=== PATIENT | male | born 1950 | race Caucasian/White ===

== ENCOUNTER 2017-04-09 08:05 | Emergency (ER) | payer BC ==
[~2017-04-09 08:05] MED LIST: Lidocaine 1% 20 ML MDV INFILT ONE
[2017-04-09] MEDS ORDERED: Bacitracin/Neomycin/Polymyxin B Oint 0.9 GM U/D Packet TOP ONE (08:55)
[2017-04-09] MEDS ORDERED: cefTRIAXone 1,000 MG VIAL IM ONE (08:56)
[2017-04-09] MEDS ORDERED: Diphtheria,Pertussis(Acell),Tetanus Vaccine 0.5 ML SDV IM ONE (09:00)
--- NOTE | 2017-04-09 09:00 | EDM.PDOC ---
ED HPI GENERAL MEDICAL PROBLEM - General Stated Complaint: SMASHED RIGHT MIDDLE FINGER Time Seen by Provider: 04/09/17 08:05 Source of Information: Reports: Patient, Family History Limitations: Reports: No Limitations - History of Present Illness INITIAL COMMENTS - FREE TEXT/NARRATIVE: 66 y.o.w.m smashed his r middle finger, distal phalanx on a farm machine, nail was gone, no other acute medical issues Onset: Today Onset Date: 04/09/17 Onset Time: 07:00 Duration: Hour(s): Location: Reports: Upper Extremity, Right Quality: Reports: Burning Severity: Moderate Improves with: Reports: None Worsens with: Reports: None Context: Reports: Trauma Associated Symptoms: Reports: No Other Symptoms - Related Data Allergies Allergy/AdvReac Type Severity Reaction Status Date / Time No Known Allergies Allergy Verified 04/09/17 09:01 Home Meds: Home Meds Cephalexin [Keflex] 500 mg PO Q6HR #40 cap 04/09/17 [Rx] Review of Systems - Review of Systems Review Of Systems: See Below Constitutional: Reports: No Symptoms Eyes: Reports: No Symptoms Ears: Reports: No Symptoms Nose: Reports: No Symptoms Mouth/Throat: Reports: No Symptoms Respiratory: Reports: No Symptoms Cardiovascular: Reports: No Symptoms GI/Abdominal: Reports: No Symptoms Genitourinary: Reports: No Symptoms Musculoskeletal: Reports: Hand Pain Skin: Reports: Wound (r middle finger) Neurological: Reports: No Symptoms Psychiatric: Reports: No Symptoms ED EXAM, GENERAL - Physical Exam Exam: See Below Exam Limited By: No Limitations General Appearance: Alert, WD/WN, Mild Distress Eye Exam: Bilateral Eye: Normal Inspection Ears: Normal External Exam Ear Exam: Bilateral Ear: Auricle Normal Nose: Normal Inspection, Normal Mucosa Throat/Mouth: Normal Inspection, Normal Lips Head: Atraumatic, Normocephalic Neck: Normal Inspection, Supple, Non-Tender, Full Range of Motion Respiratory/Chest: No Respiratory Distress, Lungs Clear, Normal Breath Sounds Cardiovascular: Normal Peripheral Pulses, Regular Rate, Rhythm, No Edema, No Gallop Peripheral Pulses: 1+: Femoral (L), Femoral (R) GI/Abdominal: Normal Bowel Sounds, Soft (Male) Exam: Deferred Rectal (Males) Exam: Deferred Back Exam: Normal Inspection, Full Range of Motion Extremities: Other (right index finger laceration, finger nail gone) Neurological: Alert, Oriented, CN II-XII Intact, Normal Cognition, Normal Gait Psychiatric: Normal Affect, Normal Mood Skin Exam: Warm, Dry, Intact, Normal Color, No Rash, Cool ED TRAUMA EXTREMITY PROCEDURES - Laceration/Wound Repair Right Middle Distal Finger Appearance: Subcutaneous, Clean Distal NVT: Neuro & Vascular Intact, No Tendon Injury Anesthetic Type: Digital Local Anesthesia - Lidocaine (Xylocaine): 1% Plain Local Anesthetic Volume: 5cc Skin Prep: Providone-Iodine (Betadine) Saline irrigation (cc's): 4 Exploration/Debridement/Repair: Wound Explored, in a Bloodless Field, Explored to Base Closed with: Sutures Suture Size: 4-0 Suture Type: Other (ethilon) Drain Placement: No Sterile Dressing Applied: Nurse Tetanus Status Addressed: Yes Complications: No Course - Vital Signs Text/Narrative:: 66 y.o.w.m smashed his r middle finger, distal phalanx on a farm machine, nail was gone, no other acute medical issues PE: R middle finger Laceration Procedure: Please see note above Impression: R middle finger Laceration Tx: TD, Tocephin, wound repair Reexam: Improved Plan: D/C with instructions - Orders/Labs/Meds Orders: Active Orders 24 hr Category Date Time Status Vaccines to be Administered [RC] PER UNIT ROUTINE Care 04/09/17 09:00 Active Meds: Medications Discontinued Medications Generic Name Dose Route Start Last Admin Trade Name Freq PRN Reason Stop Dose Admin Ceftriaxone Sodium 1,000 mg 04/09/17 08:56 Rocephin IM 04/09/17 08:57 ONETIME ONE Diphtheria/Tetanus/Acell Pertussis 0.5 ml 04/09/17 09:00 Adacel IM 04/09/17 09:01 .ONCE ONE Neomycin/Polymyxin/Bacitracin 1 each 04/09/17 08:55 Triple Antibiotic Oint TOP 04/09/17 08:56 ONETIME ONE Departure - Departure Time of Disposition: 09:03 Disposition: Home, Self-Care 01 Condition: good Clinical Impression: Laceration of finger Qualifiers: Encounter type: initial encounter Finger: middle finger Damage to nail status: with damage Foreign body presence: without foreign body Laterality: right Qualified Code(s): S61.312A - Laceration without foreign body of right middle finger with damage to nail, initial encounter Nailbed laceration, finger Qualifiers: Encounter type: initial encounter Qualified Code(s): S61.319A - Laceration without foreign body of unspecified finger with damage to nail, initial encounter - Discharge Information Prescriptions: Cephalexin [Keflex] 500 mg PO Q6HR #40 cap Instructions: Laceration Care, Adult Referrals: Avni Cortez MD [Primary Care Provider] - Additional Instructions: please apply neosporine ountment to wound twice daily for 5 days, please take Keflex as recommended, wound check in 2-3 days, suture removal in 10-14 days. Please come back if your symptoms get worse acutely. - My Orders Last 24 Hours: My Active Orders 04/09/17 09:00 Vaccines to be Administered [RC] PER UNIT ROUTINE - Assessment/Plan Last 24 Hours: My Active Orders 04/09/17 09:00 Vaccines to be Administered [RC] PER UNIT ROUTINE
[2017-04-09 10:37] VITALS: BP 126/79
--- NOTE | 2017-05-12 10:23 | ER ---
ADDENDUM: Tx: Krysta CASTRO. Wound repair, 2-cm in length, to the best of my knowledge. ANANT
== END 2017-04-09 09:35 | disposition home or self-care (01) ==
LOC: FB.ED 08:05
DX: S61.312A Laceration without foreign body of right middle finger with damage to nail, initial encounter (principal); W23.0XXA Caught, crushed, jammed, or pinched between moving objects, initial encounter; Z23 Encounter for immunization
CPT/HCPCS: 12001; 90471; 90715; 96372; 99283; J0696; 12002

== ENCOUNTER 2018-03-30 06:32 | Day surgery (SDC) | payer BC, MEDICARE ==
[2018-03-30] MEDS ORDERED: Lactated Ringers 1,000 ML IV SCH (06:45)
[2018-03-30] MEDS ORDERED: Propofol 200 MG/20 ML SDV IV ONE (07:50)
[2018-03-30] MEDS ORDERED: Midazolam 1 MG/ML 2 ML SDV IV ONE (07:50)
--- NOTE | 2018-03-30 09:00 | OR ---
DATE OF OPERATION: 03/30/2018 SURGEON: Kulwinder William MD PROCEDURE PERFORMED: Colonoscopy with hot loop snare biopsy. PREOPERATIVE DIAGNOSIS: Need for screening C-scope. POSTOPERATIVE DIAGNOSES: Cecal polyp and sigmoid diverticulosis. INDICATIONS FOR PROCEDURE: This is a 67-year-old white male who presents for screening colonoscopy. He was offered and accepted the same. DESCRIPTION OF OPERATION: After an excellent IV sedation was administered, digital rectal exam was performed. No marked abnormality was noted. Flexible colonoscope was inserted and advanced into the cecum without difficulty. The prep was good. The following findings were noted: Ascending colon and the cecum, polypoid lesion, biopsied with a hot loop snare and sent for permanent. Transverse colon, unremarkable. Descending colon, unremarkable. Sigmoid, mild diverticulosis. Rectum and anus, unremarkable. Colon was deflated and the scope was removed. The patient tolerated the procedure well and was taken to the recovery room in good condition. /[id number] /ADOLFO
[2018-03-30 09:26] VITALS: BP 103/63
== END 2018-03-30 09:40 | disposition home or self-care (01) ==
LOC: EEVIPCON 06:32 → FB.SDS 06:32
PROVIDERS: ATTEND Surgery
DX: Z12.11 Encounter for screening for malignant neoplasm of colon (principal); K63.5 Polyp of colon; K57.30 Diverticulosis of large intestine without perforation or abscess without bleeding
CPT/HCPCS: 00812; 45385; 88305; J2250; J2704; J7120